=== PATIENT | male | born 1945 | race Caucasian/White ===

== ENCOUNTER 2023-08-09 17:27 | Emergency (ER) | payer OTHER, SELFPAY ==
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
[2023-08-09 18:26] VITALS: BP 178/70; PULSE 67; RESP 18; TEMP 36.4; O2SAT 100
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
[2023-08-09 22:01] VITALS: BP 162/78; PULSE 63; RESP 15; O2SAT 99
== END 2023-08-09 22:03 | disposition home or self-care (01) ==
PROVIDERS: Emergency Provider Emergency Medicine
DX: S16.1XXA Strain of muscle, fascia and tendon at neck level, initial encounter (principal); S60.012A Contusion of left thumb without damage to nail, initial encounter; S20.212A Contusion of left front wall of thorax, initial encounter; V89.2XXA Person injured in unspecified motor-vehicle accident, traffic, initial encounter
CPT/HCPCS: 71046; 72125; 73130; 99284